=== PATIENT | male | born 1995 | race Two or more races ===

== ENCOUNTER 2023-01-24 13:19 | Emergency (ER) | payer MEDICAID, OTHER ==
[~2023-01-24] VITALS: Ht 182.9 cm; Wt 104.0 kg
[2023-01-24 14:11] VITALS: BP 127/79; PULSE 62; RESP 16; TEMP 97.7; O2SAT 98
== END 2023-01-24 15:01 | disposition home or self-care (01) ==
LOC: ER 13:19
DX: S93.492A Sprain of other ligament of left ankle, initial encounter (principal); X58.XXXA Exposure to other specified factors, initial encounter; Y93.89 Activity, other specified; Y92.89 Other specified places as the place of occurrence of the external cause; Y99.8 Other external cause status
CPT/HCPCS: 73610

== ENCOUNTER 2023-01-29 14:26 | Emergency (ER) | payer MEDICAID ==
[~2023-01-29] VITALS: Ht 182.9 cm; Wt 103.6 kg
[2023-01-29 14:30] VITALS: BP 136/85; PULSE 89; RESP 14; TEMP 98.1; O2SAT 98
== END 2023-01-29 15:53 | disposition home or self-care (01) ==
LOC: ER 14:26
DX: S93.402A Sprain of unspecified ligament of left ankle, initial encounter (principal); X50.1XXA Overexertion from prolonged static or awkward postures, initial encounter; Y93.89 Activity, other specified; Y92.89 Other specified places as the place of occurrence of the external cause; Y99.8 Other external cause status

== ENCOUNTER 2023-02-11 09:18 | Emergency (ER) | payer MEDICAID ==
[~2023-02-11] VITALS: Ht 182.9 cm; Wt 104.3 kg
[2023-02-11 10:00] VITALS: BP 132/86; PULSE 62; RESP 16; TEMP 97.8; O2SAT 99
== END 2023-02-11 13:16 | disposition home or self-care (01) ==
LOC: ER 09:18
DX: S92.022A Displaced fracture of anterior process of left calcaneus, initial encounter for closed fracture (principal); X50.1XXA Overexertion from prolonged static or awkward postures, initial encounter; Y93.89 Activity, other specified; Y92.89 Other specified places as the place of occurrence of the external cause; Y99.8 Other external cause status
CPT/HCPCS: 29515; 73630; 73700

== ENCOUNTER 2023-09-10 17:29 | Emergency (ER) | payer MEDICAID ==
[~2023-09-10] VITALS: Ht 203.2 cm; Wt 100.6 kg
[~2023-09-10 17:29] MED LIST: NAPR-1335 PO
[2023-09-10 18:22] VITALS: BP 141/81; PULSE 65; RESP 16; TEMP 98.9; O2SAT 98
== END 2023-09-10 19:12 | disposition home or self-care (01) ==
LOC: ER 17:29
DX: S92.021K Displaced fracture of anterior process of right calcaneus, subsequent encounter for fracture with nonunion (principal); Z79.899 Other long term (current) drug therapy; X58.XXXD Exposure to other specified factors, subsequent encounter

== ENCOUNTER 2024-09-13 14:36 | Emergency (ER) | payer MEDICAID ==
[~2024-09-13] VITALS: Ht 180.3 cm; Wt 90.0 kg
[2024-09-13] MEDS ORDERED: NAPR-1335 PO (16:37)
[2024-09-13] MEDS ORDERED: BACDST PO (16:37)
--- NOTE | 2024-09-13 16:39 | ED.PDOC ---
History of Present Illness HPI Comments 29-year-old male presents with a chief complaint of left thumb pain x 3 days. Patient states that he has some swelling localized to the medial aspect of his left thumb. Patient denies any drainage at this time, but endorses pain to touch. Chief Complaint: Upper Extremity Time Seen by MD: 16:14 Primary Care Provider: SINUS Reviewed Notes: Nurses Notes, Medications, Allergies Allergies: Coded Allergies: NO KNOWN ALLERGIES (Unverified , 01/24/23) Home Meds Active Scripts Naproxen Sodium (Naproxen) 220 Mg Tab, 220 MG PO BID for 7 Days, #14 TAB Prov:DA MOLINA NP 09/13/24 Sulfamethoxazole W/Trimethopri (Bactrim Ds Tablet) 1 Tab Tb, 1 TAB PO BID for 7 Days, #14 TAB 0 Refills Prov:DA MOLINA FINANCIAL REPORTING SPECIALIST 09/13/24 Information Source: Patient Mode of Arrival: Ambulatory Severity: Moderate Timing: Days Duration: Since onset Prehospital treatment: None Past Medical History PAST MEDICAL HISTORY: Denies Surgical History: Denies all surgeries Family History Family History: Reviewed,noncontributory to illness Social History Smoker: Non-Smoker Alcohol: Denies ETOH Use Drugs: Denies Drug Use Lives In: Home Constitutional: denies: chills, diaphoresis, fatigue, fever, malaise, sweats, weakness, others EENTM: denies: blurred vision, double vision, ear bleeding, ear discharge, ear drainage, ear pain, ear ringing, eye pain, eye redness, hearing loss, mouth pain, mouth swelling, nasal discharge, nose bleeding, nose congestion, nose pain, photophobia, tearing, throat pain, throat swelling, voice changes, others Respiratory: denies: cough, hemoptysis, orthopnea, SOB at rest, shortness of breath, SOB with excertion, stridor, wheezing, others Cardiovascular: denies: chest pain, dizzy spells, diaphoresis, Dyspnea on exertion, edema, irregular heart beat, left arm pain, lightheadedness, palpitations, PND, syncope, others Gastrointestinal: denies: abdomen distended, abdominal pain, blood streaked bowels, constipated, diarrhea, dysphagia, difficulty swallowing, hematemesis, melena, nausea, poor appetite, poor fluid intake, rectal bleeding, rectal pain, vomiting, others Genitourinary: denies: burning, dysuria, flank pain, frequency, hematuria, incontinence, penile discharge, penile sore, pain, testicle pain, testicle swelling, urgency, others Neurological: denies: dizziness, fainting, headache, left sided numbness, left sided weakness, numbness, paresthesia, pre-existing deficit, right sided numbness, right sided weakness, seizure, speech problems, tingling, tremors, weakness, others Musculoskeletal: denies: back pain, gout, joint pain, joint swelling, muscle pain, muscle stiffness, neck pain, others Integumetry: reports: wounds; denies: bruises, change in color, change in hair/nails, dryness, laceration, lesions, lumps, rash, others Allergic/Immunocompromised: denies: Difficulty Healing, Frequent Infections, Hives, Itching, others Hematologic/Lymphatic: denies: anemia, blood clots, easy bleeding, easy bruising, swollen glands, others Endocrine: denies: excessive hunger, excessive sweating, excessive thirst, excessive urination, flushing, intolerance to cold, intolerance to heat, unexplained weight gain, unexplained weight loss, others Psychiatric: denies: anxiety, bipolar disorder, depression, hopeless, panic disorder, schizophrenia, sleepless, suicidal, others All Other Systems: Reviewed and Negative Physical Exam General Appearance: No Apparent Distress, Normal HEENT: Normal ENT Inspection, Pharynx Normal, TMs Normal Neck: Full Range of Motion, Non-Tender, Normal, Normal Inspection Respiratory: Chest Non-Tender, Lungs Clear, No Accessory Muscle Use, No Respiratory Distress, Normal Breath Sounds Cardiovascular: No Edema, No JVD, No Murmur, No Gallop, Normal Peripheral Pulses, Regular Rate/Rhythm Breast Exam: Deferred Gastrointestinal: No Organomegaly, Non Tender, No Pulsatile Mass, Normal Bowel Sounds, Soft Genitalia: Deferred Pelvic: Deferred Rectal: Deferred Extremities: No calf tenderness, Normal capillary refill, Normal inspection, Normal range of motion, No pedal edema, Tender (MEDIAL ASPECT OF LEFT THUMB NAIL, MINIMAL FLUCTUANT, FULL ROM) Musculoskeletal : Apperance: Normal Neurologic: Alert, occ ther II-XII nml as Tested, No Motor Deficits, Normal Affect, Normal Mood, No Sensory Deficits Cerebellar Function: Normal Reflexes: Normal Skin: Dry, Normal Color, Warm Lymphatic: No Adenopathy Was a procedure done? Was a procedure done?: No Differential Dx Considerations may include: Cellulitis, abscess, paronychia X-Ray, Labs, Meds, VS Vital Signs Date Time Temp Pulse Resp B/P (MAP) Pulse Ox O2 Delivery O2 Flow Rate FiO2 09/13/24 16:44 98.3 61 16 136/69 (91) 99 98.3 09/13/24 16:23 61 16 98 Room Air 09/13/24 16:23 98.4 61 16 144/72 (96) 98 98.4 09/13/24 15:34 98.4 61 16 144/72 (96) 98 98.4 X-Ray, Labs, Meds, VS Comment 29-year-old male presents with a chief complaint of left thumb nail pain/abscess x 3 days. Patient arrives alert and oriented, ABC's intact, afebrile, vital signs stable, saturating well in room air The area is still quite firm, and the wound will not benefit from drainage at this time. Will start antibiotics and warm compresses. It is advised to return if symptoms worsen or do not resolve after completion of antibiotics. Prescribed p.o. antibiotics for presentation of symptoms Complete course of antibiotic therapy even if symptoms improve or resolve. There should be no leftover antibiotics as this can lead to antibiotic resistant bacteria and even worse infection. Patient verbalized understanding. Potential side effects discussed with patient including abdominal pain, nausea, diarrhea. Additional MDM Review of External, Non-ED records: External records reviewed. Discussion with independent historian (EMS, family) history obtained from the patient/parents (if applicable) at bedside Chronic conditions affecting care: None Social determinants of health affecting care: None Consideration of admission (observation or admission): I considered escalation of care to admission for this patient, however given the reassuring workup, the patient is safe for outpatient management. Time of 1ST Reevaluation: 16:44 Reevaluation 1ST: Improved Patient Education/Counseling: Diagnosis, Treatment, Prognosis Family Education/Counseling: No Family Present SEPSIS Sepsis Screen Date sepsis recognized/suspect: Sep 13, 2024 Time Sepsis recognized/suspect: 1526 Recent Procedure: No On Antibiotic Therapy: No Respiratory Rate >20: No Heart Rate >90: No Temp<36 C (96.8 F) or >38.3 C: No SBP <90 or MAP <65 mmHG: No New Acute Mental Status Change: No Is the patient on CPAP, BIPAP,: No Orders/Vitals/Labs Vital Signs Date Time Temp Pulse Resp B/P (MAP) Pulse Ox O2 Delivery O2 Flow Rate FiO2 09/13/24 16:44 98.3 61 16 136/69 (91) 99 98.3 09/13/24 16:23 61 16 98 Room Air 09/13/24 16:23 98.4 61 16 144/72 (96) 98 98.4 09/13/24 15:34 98.4 61 16 144/72 (96) 98 98.4 Departure 1 Departure Time of Disposition: 16:40 Impression: Primary Impression: Paronychia Disposition: HOME / SELF CARE / HOMELESS Condition: Stable e-Prescriptions Naproxen Sodium (Naproxen) 220 Mg Tab 220 MG PO BID for 7 Days, #14 TAB Prov: DA MOLINA NP 09/13/24 Sulfamethoxazole W/Trimethopri (Bactrim Ds Tablet) 1 Tab Tb 1 TAB PO BID for 7 Days, #14 TAB 0 Refills Prov: DA MOLINA NP 09/13/24 Critical Care Note Critical Care Time?: No Stability Stability form required: No Heart Score Heart Score: Heart Score Response (Comments) Value History N/A 0 EKG N/A 0 Age N/A 0 Risk Factors N/A 0 Troponin N/A 0 Total 0 I personally scribed for DA MOLINA NP ([email or web address]) on 09/13/24 at 16:38. Electronically submitted by Rolando Resendiz ([email or web address]). DA MOLINA NP Sep 13, 2024 16:38
[2024-09-13 16:44] VITALS: BP 136/69; PULSE 61; RESP 16; TEMP 98.3; O2SAT 99
== END 2024-09-13 16:47 | disposition home or self-care (01) ==
LOC: ER 14:36 → EEVIPCON 14:36 → ER 16:47
DX: L03.012 Cellulitis of left finger (principal)